=== PATIENT | male | born 1970 | race Caucasian/White ===

== ENCOUNTER 2025-07-16 11:24 | Outpatient (OUT) | payer BC, SELFPAY ==
--- NOTE | 2025-07-16 11:41 | CT_ITS ---
The [address] [address] Patient Name: DAGOBERTO GARZA MRN: [id number] date: 1970 Sex: M Assigned Patient Location: LAB Current Patient Location: Accession/Order Number: [id number] Exam Date: 07/16/2025 13:03 Report Date: 07/17/2025 08:52 At the request of: XOCHITL ADAMS DO Procedure: CT abdomen pelvis w con CT ABDOMEN AND PELVIS WITH CONTRAST COMPARISON: None CLINICAL DATA: Left lower quadrant and lateral abdominal pain for the past 2 months. Spiral images were obtained through the abdomen and pelvis following oral and 100 mL of Omnipaque 300. This CT exam was performed using one or more following dose reduction techniques: Automated exposure control, adjustment of the mA and/or kV according to patient size, or use of iterative reconstruction technique. Limited cuts through the lung bases show atelectasis and/or scarring. There is fatty infiltration of the liver. There is a tiny right hepatic hypodensity, possibly a cyst. No calcified gallstones are identified. The spleen, pancreas and adrenal glands show no acute findings. There are symmetric renal nephrograms, without hydronephrosis. The abdominal aorta is normal caliber. Tiny abdominal lymph nodes are present. No ascites is seen. Small bowel loops are normal caliber. There is stool along the colon. Postoperative and degenerative changes are seen at the spine. Images through the pelvis show no appendiceal inflammation. There are normal caliber small bowel loops. There is mild distal colonic stool. A few sigmoid diverticula are noted. No active inflammation is seen. The prostate is slightly prominent with minor mass effect at the bladder trigone. The urinary bladder is under distended and the wall appears thickened. There is no ascites. CT/CT abdomen pelvis w con IMPRESSION: FATTY LIVER. NO BOWEL OR URINARY TRACT OBSTRUCTION. MINOR DIVERTICULOSIS. NO ACUTE FINDINGS. Impression dictated by: Anisha Lewis M.D. 07/17/2025 8:52 AM Dictation Location: [place] [id number] Electronically authenticated by: [id number] Y Date: 07/17/2025 08:52
[2025-07-16 11:46] LABS: Estimated GFR (African America >60 (>=60 mL/min/1.73m^2); Estimated GFR (Non-African Ame >60 (>=60 mL/min/1.73m^2)
== END 2025-07-16 11:25 | disposition home or self-care (01) ==
PROVIDERS: Pathology Anatomic Pathology & Clinical Pathology; PCP Internal Medicine; Visit Provider Internal Medicine
DX: Z01.818 Encounter for other preprocedural examination (principal); R10.12 Left upper quadrant pain; R11.0 Nausea; K58.1 Irritable bowel syndrome with constipation; K57.90 Diverticulosis of intestine, part unspecified, without perforation or abscess without bleeding; K76.0 Fatty (change of) liver, not elsewhere classified
CPT/HCPCS: 36415; 74177; 82565; Q9967